=== PATIENT | female | born 1960 | race Caucasian/White ===

== ENCOUNTER 2020-04-16 17:10 | Inpatient (IN) | payer MEDICAID ==
[~2020-04-16] VITALS: Ht 154.9 cm; Wt 117.5 kg
[~2020-04-16 17:10] MED LIST: ASPI-986 PO; ATOR40TA70 PO; CLOP75TA33 PO; LEVO25TA7 PO; METO-539 PO; PANT40TA4 PO
[2020-04-16 23:24] LABS: BASOPHILS % 0.6 % (0.0-2.0); EOSINOPHILS % 0.1 % (0.0-5.0); HEMATOCRIT. 40.4 % (36.0-48.0); HEMOGLOBIN. 13.6 g/dL (12.0-16.0); LYMPHOCYTES % 26.6 % (20.0-50.0); MEAN CORPUSCULAR HEMOGLOBIN 31.8 pg (28.0-32.0); MEAN CORPUSCULAR VOLUME 94.7 fL (81.0-99.0); MEAN PLATELET VOLUME 8.2 fl (7.4-10.4); MONOCYTES % 5.5 % (2.0-8.0); NEUTROPHILS % 67.2 % (40.0-76.0); PLATELET 295 x1000/uL (130-400); RED BLOOD CELL COUNT 4.26 mill/uL (4.2-5.4); RED CELL DISTRIBUTION WIDTH 14.8 % (11.6-14.6)
[2020-04-16 23:26] LABS: CHLORIDE 105 mEq/L (98-107)
[2020-04-16] MEDS ORDERED: ASPIRIN 325MG EC TABLET PO ONE (23:30)
[2020-04-17] MEDS ORDERED: IOHEXOL-350 100 ML BOTTLE ONE (02:06)
[2020-04-17 06:12] VITALS: BP 135/66
[2020-04-17] MEDS ORDERED: CLOP75TA4 MT (06:57)
[2020-04-17] MEDS ORDERED: LEVO50TA8 PO (06:58)
[2020-04-17] MEDS ORDERED: ASPI-1158 PO (06:59)
[2020-04-17] MEDS ORDERED: CARISOPRODOL 350 MG PO SCH (07:00)
[2020-04-17] MEDS ORDERED: CARI250T PO (07:00)
[2020-04-17] MEDS ORDERED: CARISOPRODOL 350 MG TABLET PO PRN ×2 (07:15)
[2020-04-17] MEDS: MORPHINE SULFATE 2 MG/ML CPJ (NOT FOR IM USE) IV PRN ×5 (07:34→20:54)
[2020-04-17 07:42] VITALS: BP 145/81
[2020-04-17] MEDS: CLOPIDOGREL 75MG TABLET PO SCH (08:59)
[2020-04-17] MEDS ORDERED: ALPRAZOLAM 0.25 MG TABLET PO SCH (09:00)
[2020-04-17] MEDS ORDERED: ENOXAPARIN 40MG/0.4ML SYR SUBCUT SCH (09:00)
[2020-04-17] MEDS: FAMOTIDINE 20MG TABLET PO SCH ×2 (09:01→21:25)
[2020-04-17] MEDS: ASPIRIN 81MG EC TABLET PO SCH (09:02)
[2020-04-17] MEDS: ISOSORBIDE MONONITRATE 60MG TABLET SR 24HR PO SCH (09:03)
[2020-04-17] MEDS: METOPROLOL TARTRATE 50MG TABLET PO SCH ×2 (09:04→21:26)
[2020-04-17 09:24] LABS: BASOPHILS % 0.4 % (0.0-2.0); EOSINOPHILS % 0.4 % (0.0-5.0); HEMATOCRIT. 39.2 % (36.0-48.0); LYMPHOCYTES % 28.3 % (20.0-50.0); MEAN CORPUSCULAR HEMOGLOBIN 31.3 pg (28.0-32.0); MEAN CORPUSCULAR VOLUME 94.4 fL (81.0-99.0); MEAN PLATELET VOLUME 8.6 fl (7.4-10.4); MONOCYTES % 4.4 % (2.0-8.0); NEUTROPHILS % 66.5 % (40.0-76.0); PLATELET 287 x1000/uL (130-400); RED BLOOD CELL COUNT 4.15 mill/uL (4.2-5.4); RED CELL DISTRIBUTION WIDTH 14.9 % (11.6-14.6)
[2020-04-17 09:32] LABS: CHLORIDE 105 mEq/L (98-107)
[2020-04-17 09:39] LABS: LDL CHOLESTEROL 89 mg/dL (5-100)
[2020-04-17 09:41] LABS: HDL CHOLESTEROL 73 mg/dL (40-59)
[2020-04-17] MEDS: ENOXAPARIN 40MG/0.4ML SYR SUBCUT SCH ×2 (10:26→21:00)
[2020-04-17] MEDS ORDERED: POTASSIUM CHLORIDE 20MEQ TABLET SR PO NR (11:00)
[2020-04-17 11:20] VITALS: BP 117/53
[2020-04-17] MEDS: DIPHENHYDRAMINE 25MG CAPSULE PO PRN (12:43)
[2020-04-17] MEDS: ALPRAZOLAM 0.25 MG TABLET PO SCH ×2 (14:37→22:05)
[2020-04-17 16:01] VITALS: BP 114/65
[2020-04-17] MEDS: IPRATROPIUM/ALBUTEROL 0.5-3(2.5)MG/3ML NEB HHN SCH ×2 (17:47→21:18)
[2020-04-17 20:00] VITALS: BP 114/65
[2020-04-17] MEDS: ATORVASTATIN CALCIUM 40MG TABLET PO SCH (21:25)
[2020-04-17] MEDS: DIPHENHYDRAMINE 50MG/ML VIAL IV PRN (21:27)
[2020-04-17] MEDS ORDERED: ENOXAPARIN 40MG/0.4ML SYR SUBCUT NR (22:39)
[2020-04-18] VITALS (10 sets, daily range): BP systolic 113–159; BP diastolic 61–95
[2020-04-18] MEDS: IPRATROPIUM/ALBUTEROL 0.5-3(2.5)MG/3ML NEB HHN SCH ×6 (00:36→20:17)
[2020-04-18] MEDS: MORPHINE SULFATE 2 MG/ML CPJ (NOT FOR IM USE) IV PRN ×6 (01:58→21:02)
[2020-04-18] MEDS: DIPHENHYDRAMINE 50MG/ML VIAL IV PRN ×4 (03:38→22:52)
[2020-04-18 06:29] LABS: PROTHROMBIN TIME 10.9 sec (9.6-11.0)
[2020-04-18 06:34] LABS: BASOPHILS % 0.6 % (0.0-2.0); EOSINOPHILS % 1.1 % (0.0-5.0); HEMATOCRIT. 37.6 % (36.0-48.0); HEMOGLOBIN. 12.5 g/dL (12.0-16.0); LYMPHOCYTES % 43.5 % (20.0-50.0); MEAN CORPUSCULAR HEMOGLOBIN 31.9 pg (28.0-32.0); MEAN CORPUSCULAR VOLUME 95.7 fL (81.0-99.0); MEAN PLATELET VOLUME 8.6 fl (7.4-10.4); MONOCYTES % 5.6 % (2.0-8.0); NEUTROPHILS % 49.2 % (40.0-76.0); PLATELET 255 x1000/uL (130-400); RED BLOOD CELL COUNT 3.93 mill/uL (4.2-5.4)
[2020-04-18 06:37] LABS: CHLORIDE 106 mEq/L (98-107)
[2020-04-18] MEDS: ALPRAZOLAM 0.25 MG TABLET PO SCH ×3 (06:39→21:55)
[2020-04-18] MEDS: LEVOTHYROXINE SODIUM 50MCG TABLET PO SCH (07:13)
[2020-04-18] MEDS: ISOSORBIDE MONONITRATE 60MG TABLET SR 24HR PO SCH (08:54)
[2020-04-18] MEDS: ASPIRIN 81MG EC TABLET PO SCH ×2 (08:54→10:10)
[2020-04-18] MEDS: METOPROLOL TARTRATE 50MG TABLET PO SCH ×2 (08:55→21:00)
[2020-04-18] MEDS: CLOPIDOGREL 75MG TABLET PO SCH ×2 (08:55→10:09)
[2020-04-18] MEDS: FAMOTIDINE 20MG TABLET PO SCH ×2 (08:55→10:09)
[2020-04-18] MEDS: ENOXAPARIN 40MG/0.4ML SYR SUBCUT SCH (08:56)
[2020-04-18] MEDS ORDERED: NITROGLYCERIN 50MCG/ML 10ML VIAL (CATH LAB) IV ONE ×2 (10:00→11:00)
[2020-04-18] MEDS ORDERED: HEPARIN SODIUM 1,000 UNIT/1ML VIAL IV ONE ×2 (10:00→11:00)
[2020-04-18] MEDS ORDERED: NICARDIPINE 100MCG/ML 10ML VIAL (CATH LAB) IV ONE ×2 (10:00→11:00)
[2020-04-18] MEDS ORDERED: MIDAZOLAM HCL 5 MG/5 ML VIAL ONE (10:11)
[2020-04-18] MEDS ORDERED: LIDOCAINE HCL 1% 20ML VIAL (Pyxis) INJ ONE (10:12)
[2020-04-18] MEDS ORDERED: FENTANYL CITRATE/PF 50MCG/ML 5ML VIAL ONE (10:12)
[2020-04-18] MEDS ORDERED: IODIXANOL 320MG/ML 100 ML BOTTLE IV ONE (10:13)
[2020-04-18] MEDS ORDERED: ATROPINE SULFATE 1MG/10ML SYR IV PRN (11:30)
[2020-04-18] MEDS ORDERED: ACETAMINOPHEN 325MG TABLET PO PRN (12:00)
[2020-04-18] MEDS: DIPHENHYDRAMINE 25MG CAPSULE PO PRN (13:05)
[2020-04-18] MEDS: ATORVASTATIN CALCIUM 40MG TABLET PO SCH (21:00)
[2020-04-19] VITALS (9 sets, daily range): BP systolic 101–145; BP diastolic 52–85
[2020-04-19] MEDS: IPRATROPIUM/ALBUTEROL 0.5-3(2.5)MG/3ML NEB HHN SCH ×5 (00:46→16:46)
[2020-04-19] MEDS: MORPHINE SULFATE 2 MG/ML CPJ (NOT FOR IM USE) IV PRN ×3 (01:06→09:24)
[2020-04-19 03:30] LABS: *AMPHETAMINES SCREEN URINE NEGATIVE (NEGATIVE); *BARBITURATES SCREEN URINE NEGATIVE (NEGATIVE); *BENZODIAZEPINES SCREEN URINE PRESUMTIVE POSITIVE (NEGATIVE)
[2020-04-19 03:31] LABS: *COCAINE SCREEN URINE NEGATIVE (NEGATIVE); CANNABINOID URINE SCREEN NEGATIVE (NEGATIVE); METHADONE URINE SCREEN NEGATIVE (NEGATIVE); OPIATES URINE SCREEN PRESUMTIVE POSITIVE (NEGATIVE); PHENCYCLIDINE URINE SCREEN NEGATIVE (NEGATIVE)
[2020-04-19] MEDS: DIPHENHYDRAMINE 50MG/ML VIAL IV PRN ×2 (05:03→11:10)
[2020-04-19] MEDS: LEVOTHYROXINE SODIUM 50MCG TABLET PO SCH (06:10)
[2020-04-19] MEDS: ALPRAZOLAM 0.25 MG TABLET PO SCH ×2 (06:10→13:25)
[2020-04-19 06:13] LABS: BASOPHILS % 0.7 % (0.0-2.0); EOSINOPHILS % 1.3 % (0.0-5.0); HEMATOCRIT. 38.8 % (36.0-48.0); HEMOGLOBIN. 12.9 g/dL (12.0-16.0); LYMPHOCYTES % 37.7 % (20.0-50.0); MEAN CORPUSCULAR HEMOGLOBIN 31.7 pg (28.0-32.0); MEAN CORPUSCULAR VOLUME 95.3 fL (81.0-99.0); MEAN PLATELET VOLUME 8.9 fl (7.4-10.4); MONOCYTES % 4.6 % (2.0-8.0); NEUTROPHILS % 55.7 % (40.0-76.0); PLATELET 254 x1000/uL (130-400); RED BLOOD CELL COUNT 4.08 mill/uL (4.2-5.4); RED CELL DISTRIBUTION WIDTH 14.8 % (11.6-14.6)
[2020-04-19 06:27] LABS: CHLORIDE 103 mEq/L (98-107)
[2020-04-19] MEDS: METOPROLOL TARTRATE 50MG TABLET PO SCH (09:16)
[2020-04-19] MEDS: ISOSORBIDE MONONITRATE 60MG TABLET SR 24HR PO SCH (09:16)
[2020-04-19] MEDS: FAMOTIDINE 20MG TABLET PO SCH (09:16)
[2020-04-19] MEDS ORDERED: LOSARTAN POTASSIUM 25 MG TABLET PO SCH (11:30)
[2020-04-19 12:42] LABS: CLARITY URINE CLEAR (CLEAR); COLOR URINE YELLOW (YELLOW); KETONES URINE NEGATIVE (NEGATIVE); LEUKOCYTE ESTERASE URINE 1+ (NEGATIVE); NITRITE URINE NEGATIVE (NEGATIVE); OCCULT BLOOD URINE NEGATIVE (NEGATIVE); PROTEIN URINE NEGATIVE (NEGATIVE); SPECIFIC GRAVITY URINE 1.015 (1.005-1.030); UROBILINOGEN URINE 0.2 E.U./dL (0.2-1.0)
[2020-04-19] MEDS ORDERED: TRAM50TA MT (14:18)
== END 2020-04-19 17:50 | disposition home or self-care (01) | DRG 192 ==
LOC: ER 17:10 → 8WST 04-17 00:59 → EDBEDREQDT 04-17 01:04 → EDBEDREQ 04-17 01:04 → EDBEDREQTM 04-17 01:04 → ENRESERV 04-17 01:52 → 3WST 04-18 11:48
PROVIDERS: ADMIT Internal Medicine; ATTEND Internal Medicine
PROC: 4A023N7 Measurement of Cardiac Sampling and Pressure, Left Heart, Percutaneous Approach (ICD-10-PCS; principal; 2020-04-18)
PROC: B2111ZZ Fluoroscopy of Multiple Coronary Arteries using Low Osmolar Contrast (ICD-10-PCS; 2020-04-18)
DX: T82.855A Stenosis of coronary artery stent, initial encounter (principal); I25.10 Atherosclerotic heart disease of native coronary artery without angina pectoris; E03.9 Hypothyroidism, unspecified; E66.01 Morbid (severe) obesity due to excess calories; E78.5 Hyperlipidemia, unspecified; I10 Essential (primary) hypertension; E78.00 Pure hypercholesterolemia, unspecified; J90 Pleural effusion, not elsewhere classified; R74.01 Elevation of levels of liver transaminase levels; F17.210 Nicotine dependence, cigarettes, uncomplicated; Z20.828 Contact with and (suspected) exposure to other viral communicable diseases; Y83.8 Other surgical procedures as the cause of abnormal reaction of the patient, or of later complication, without mention of misadventure at the time of the procedure; I25.2 Old myocardial infarction; Z68.42 Body mass index [BMI] 45.0-49.9, adult; Z86.73 Personal history of transient ischemic attack (TIA), and cerebral infarction without residual deficits; Z86.718 Personal history of other venous thrombosis and embolism; Z86.74 Personal history of sudden cardiac arrest; Z90.710 Acquired absence of both cervix and uterus; Z79.899 Other long term (current) drug therapy; Z79.82 Long term (current) use of aspirin; Z71.3 Dietary counseling and surveillance; Z88.8 Allergy status to other drugs, medicaments and biological substances; Y92.89 Other specified places as the place of occurrence of the external cause
CPT/HCPCS: 36415; 71045; 71275; 80048; 80053; 80061; 80305; 81003; 83036; 83735; 83880; 84484; 85025; 85379; 93005; 93306; 93458; 93970; 99285; C1769; C1887; C1893; J1200; J1644; J1650; J2250; J2270; J3010; J3490; Q0163; Q9967; U0003

== ENCOUNTER 2020-07-28 12:18 | Inpatient (IN) | payer MEDICAID ==
[~2020-07-28] VITALS: Ht 154.9 cm; Wt 102.1 kg
[~2020-07-28 12:18] MED LIST changes: +ASPI-1406 PO; -ASPI-986 PO; -ATOR40TA70 PO; +CARI250T PO; +CLOP-31 MT; -CLOP75TA33 PO; -LEVO25TA7 PO; +LEVO50TA8 PO; -PANT40TA4 PO; +TRAM50TA MT
[2020-07-28] MEDS ORDERED: NITROGLYCERIN 0.4MG TABLET SL SL PRN (13:00)
[2020-07-28] MEDS ORDERED: MORPHINE SULFATE 4 MG/ML CPJ (NOT FOR IM USE) IV ONE ×2 (13:00→15:45)
[2020-07-28 13:49] LABS: BASOPHILS % 0.6 % (0.0-2.0); EOSINOPHILS % 1.6 % (0.0-5.0); HEMATOCRIT. 39.7 % (36.0-48.0); HEMOGLOBIN. 12.9 g/dL (12.0-16.0); LYMPHOCYTES % 35.7 % (20.0-50.0); MEAN CORPUSCULAR HEMOGLOBIN 30.5 pg (28.0-32.0); MEAN CORPUSCULAR VOLUME 93.9 fL (81.0-99.0); MEAN PLATELET VOLUME 8.7 fl (7.4-10.4); MONOCYTES % 5.9 % (2.0-8.0); NEUTROPHILS % 56.2 % (40.0-76.0); PLATELET 270 x1000/uL (130-400); RED BLOOD CELL COUNT 4.23 mill/uL (4.2-5.4); RED CELL DISTRIBUTION WIDTH 14.1 % (11.6-14.6)
[2020-07-28 13:54] LABS: CHLORIDE 105 mEq/L (98-107)
[2020-07-28 15:00] LABS: *AMPHETAMINES SCREEN URINE NEGATIVE (NEGATIVE); *BARBITURATES SCREEN URINE NEGATIVE (NEGATIVE); *BENZODIAZEPINES SCREEN URINE NEGATIVE (NEGATIVE); *COCAINE SCREEN URINE NEGATIVE (NEGATIVE); METHADONE URINE SCREEN NEGATIVE (NEGATIVE); OPIATES URINE SCREEN PRESUMTIVE POSITIVE (NEGATIVE); PHENCYCLIDINE URINE SCREEN NEGATIVE (NEGATIVE)
[2020-07-28 15:01] LABS: CANNABINOID URINE SCREEN NEGATIVE (NEGATIVE)
[2020-07-28] MEDS ORDERED: OXYCODONE HCL/ACETAMINOPHEN 5/325MG TABLET PO ONE (20:00)
[2020-07-28] MEDS ORDERED: ZOLPIDEM TARTRATE 5MG TABLET PO PRN (20:15)
[2020-07-28] MEDS ORDERED: ONDANSETRON HCL 4MG/2ML INJ IV PRN (20:15)
[2020-07-28] MEDS ORDERED: ACETAMINOPHEN 325MG TABLET PO PRN ×2 (20:15)
[2020-07-28] MEDS ORDERED: ALPRAZOLAM 0.25 MG TABLET PO PRN (20:15)
[2020-07-28] MEDS ORDERED: CLONIDINE 0.1MG TABLET PO PRN (20:15)
[2020-07-28] MEDS ORDERED: MAGNESIUM/ALUMINUM HYDROXIDE/SIMETHICONE 30ML UDC PO PRN (20:15)
[2020-07-28] MEDS ORDERED: CARISOPRODOL 350 MG TABLET PO PRN (20:15)
[2020-07-28] MEDS ORDERED: DIPHENHYDRAMINE 50MG/ML VIAL IV PRN (20:15)
[2020-07-28] MEDS ORDERED: GUAIFENESIN 200MG/10ML SUGAR FREE UDC PO PRN (20:15)
[2020-07-28] MEDS ORDERED: IPRATROPIUM/ALBUTEROL 0.5-3(2.5)MG/3ML NEB HHN PRN (20:15)
[2020-07-28] MEDS ORDERED: ATORVASTATIN CALCIUM 40MG TABLET PO SCH (21:00)
[2020-07-28] MEDS: ENOXAPARIN 30MG/0.3ML SYR SUBCUT SCH (21:45)
[2020-07-28] MEDS: SODIUM CHLORIDE 0.9% INJ 3ML FLUSH IVF SCH (21:56)
[2020-07-28 22:30] VITALS: BP 129/61
[2020-07-28] MEDS: OXYCODONE HCL/ACETAMINOPHEN 5/325MG TABLET PO PRN (23:47)
[2020-07-29] VITALS: BP 103/67
[2020-07-29 04:00] VITALS: BP 115/67
[2020-07-29] MEDS: SODIUM CHLORIDE 0.9% INJ 3ML FLUSH IVF SCH (06:30)
[2020-07-29] MEDS ORDERED: LEVOTHYROXINE SODIUM 25MCG TABLET PO SCH (07:20)
[2020-07-29 08:00] VITALS: BP 158/70
[2020-07-29 08:47] VITALS: BP 158/70
[2020-07-29] MEDS: OXYCODONE HCL/ACETAMINOPHEN 5/325MG TABLET PO PRN (08:47)
[2020-07-29] MEDS: ENOXAPARIN 30MG/0.3ML SYR SUBCUT SCH (08:48)
[2020-07-29] MEDS ORDERED: ISOSORBIDE MONONITRATE 60MG TABLET SR 24HR PO SCH (09:00)
[2020-07-29] MEDS ORDERED: ASPIRIN 81MG EC TABLET PO SCH (09:00)
[2020-07-29] MEDS ORDERED: CLOPIDOGREL 75MG TABLET PO SCH (09:00)
[2020-07-29] MEDS ORDERED: LOSARTAN POTASSIUM 25 MG TABLET PO SCH (09:00)
== END 2020-07-29 13:10 | disposition left against medical advice (07) | DRG 203 ==
LOC: ER 12:38 → 6WST 16:51 → EDBEDREQ 16:53 → EDBEDREQTM 16:53 → ENRESERV 20:37
PROVIDERS: ADMIT Internal Medicine; ATTEND Internal Medicine
DX: M94.0 Chondrocostal junction syndrome [Tietze] (principal); E03.9 Hypothyroidism, unspecified; E11.9 Type 2 diabetes mellitus without complications; E66.9 Obesity, unspecified; E78.00 Pure hypercholesterolemia, unspecified; E78.5 Hyperlipidemia, unspecified; G89.4 Chronic pain syndrome; I10 Essential (primary) hypertension; I25.10 Atherosclerotic heart disease of native coronary artery without angina pectoris; J44.9 Chronic obstructive pulmonary disease, unspecified; R74.01 Elevation of levels of liver transaminase levels; M19.90 Unspecified osteoarthritis, unspecified site; Z96.651 Presence of right artificial knee joint; Z53.29 Procedure and treatment not carried out because of patient's decision for other reasons; Z68.41 Body mass index [BMI] 40.0-44.9, adult; Z88.6 Allergy status to analgesic agent; Z79.899 Other long term (current) drug therapy; Z79.82 Long term (current) use of aspirin; I25.2 Old myocardial infarction; Z90.710 Acquired absence of both cervix and uterus; Z95.1 Presence of aortocoronary bypass graft; Z95.5 Presence of coronary angioplasty implant and graft; Z87.891 Personal history of nicotine dependence; Z86.718 Personal history of other venous thrombosis and embolism; Z86.73 Personal history of transient ischemic attack (TIA), and cerebral infarction without residual deficits
CPT/HCPCS: 36415; 71045; 80053; 80305; 83880; 84484; 85025; 93005; 99285; J1650; J2270

== ENCOUNTER 2021-04-17 21:05 | Inpatient (IN) | payer MEDICAID, MEDICARE ==
[~2021-04-17] VITALS: Ht 154.9 cm; Wt 109.4 kg
[2021-04-17 22:51] LABS: HEMATOCRIT. 38.3 % (36.0-48.0); HEMOGLOBIN. 12.8 g/dL (12.0-16.0); MEAN CORPUSCULAR HEMOGLOBIN 30.7 pg (28.0-32.0); MEAN CORPUSCULAR VOLUME 91.6 fL (81.0-99.0); MEAN PLATELET VOLUME 7.9 fl (7.4-10.4); PLATELET 281 x1000/uL (130-400); RED BLOOD CELL COUNT 4.18 mill/uL (4.2-5.4); RED CELL DISTRIBUTION WIDTH 15.9 % (11.6-14.6)
[2021-04-17] MEDS ORDERED: MORPHINE SULFATE 4 MG/ML CPJ (NOT FOR IM USE) IV STA (22:53)
[2021-04-17] MEDS ORDERED: ONDANSETRON HCL 4MG/2ML INJ IV STA (22:53)
[2021-04-17 22:57] LABS: CHLORIDE 112 mEq/L (98-107)
[2021-04-17] MEDS ORDERED: NITROGLYCERIN OINT 1GM/INCH UDPKT TD ONE (23:00)
[2021-04-17 23:01] LABS: ETHANOL BLOOD < 10 mg/dL
[2021-04-17 23:12] LABS: PLATELET ESTIMATE NORMAL
[2021-04-18] MEDS ORDERED: MORPHINE SULFATE 2 MG/ML CPJ (NOT FOR IM USE) IV PRN (05:15)
[2021-04-18 05:34] LABS: *AMPHETAMINES SCREEN URINE NEGATIVE (NEGATIVE); *BARBITURATES SCREEN URINE NEGATIVE (NEGATIVE); *BENZODIAZEPINES SCREEN URINE NEGATIVE (NEGATIVE); *COCAINE SCREEN URINE NEGATIVE (NEGATIVE); METHADONE URINE SCREEN NEGATIVE (NEGATIVE); OPIATES URINE SCREEN PRESUMTIVE POSITIVE (NEGATIVE); PHENCYCLIDINE URINE SCREEN NEGATIVE (NEGATIVE)
[2021-04-18 05:35] LABS: CANNABINOID URINE SCREEN NEGATIVE (NEGATIVE)
[2021-04-18] MEDS ORDERED: HYDROCODONE/ACETAMINOPHEN 5/325MG TABLET PO PRN (08:30)
[2021-04-18] MEDS ORDERED: ACETAMINOPHEN 325MG TABLET PO PRN (08:30)
[2021-04-18] MEDS ORDERED: ONDANSETRON HCL 4MG/2ML INJ IV PRN (08:30)
[2021-04-18 09:17] LABS: EOSINOPHILS % 1.7 % (0.0-5.0); HEMATOCRIT. 37.7 % (36.0-48.0); HEMOGLOBIN. 12.3 g/dL (12.0-16.0); LYMPHOCYTES % 34.1 % (20.0-50.0); MEAN CORPUSCULAR HEMOGLOBIN 30.3 pg (28.0-32.0); MEAN PLATELET VOLUME 8.1 fl (7.4-10.4); MONOCYTES % 5.7 % (2.0-8.0); NEUTROPHILS % 57.5 % (40.0-76.0); PLATELET 251 x1000/uL (130-400); RED BLOOD CELL COUNT 4.06 mill/uL (4.2-5.4); RED CELL DISTRIBUTION WIDTH 15.7 % (11.6-14.6)
[2021-04-18 09:25] LABS: CHLORIDE 111 mEq/L (98-107)
[2021-04-18 09:38] VITALS: BP 101/52
[2021-04-18] MEDS ORDERED: METOPROLOL TARTRATE 50MG TABLET PO SCH (10:15)
[2021-04-18] MEDS ORDERED: ISOSORBIDE MONONITRATE 30MG TABLET SR 24HR PO SCH (10:15)
[2021-04-18] MEDS ORDERED: CLOPIDOGREL 75MG TABLET PO SCH (10:15)
[2021-04-18] MEDS ORDERED: ASPIRIN 81MG TABLET PO SCH (10:15)
[2021-04-18] MEDS ORDERED: MORPHINE SULFATE 2 MG/ML CPJ (NOT FOR IM USE) IV NR (11:48)
[2021-04-18 12:00] VITALS: BP 142/80
[2021-04-18] MEDS ORDERED: NITROGLYCERIN OINT 1GM/INCH UDPKT TD SCH (14:00)
[2021-04-18] MEDS ORDERED: ISOS30TA91 PO (14:47)
[2021-04-18 16:00] VITALS: BP 98/66
[2021-04-18 16:10] VITALS: BP 101/58
[2021-04-18] MEDS ORDERED: ATORVASTATIN CALCIUM 40MG TABLET PO SCH (21:00)
[2021-04-19] MEDS ORDERED: ASPIRIN 81MG TABLET PO SCH (09:00)
== END 2021-04-18 16:22 | disposition home or self-care (01) | DRG 203 ==
LOC: ER 21:05 → 8WST 23:21 → EDBEDREQ 23:24 → EDBEDREQTM 23:24 → ENRESERV 04-18 07:56
PROVIDERS: ADMIT Internal Medicine; ATTEND Internal Medicine
DX: M94.0 Chondrocostal junction syndrome [Tietze] (principal); E44.1 Mild protein-calorie malnutrition; E87.8 Other disorders of electrolyte and fluid balance, not elsewhere classified; I50.9 Heart failure, unspecified; I11.0 Hypertensive heart disease with heart failure; I25.10 Atherosclerotic heart disease of native coronary artery without angina pectoris; E66.9 Obesity, unspecified; E78.00 Pure hypercholesterolemia, unspecified; J98.11 Atelectasis; E03.9 Hypothyroidism, unspecified; E78.5 Hyperlipidemia, unspecified; J44.9 Chronic obstructive pulmonary disease, unspecified; Z79.82 Long term (current) use of aspirin; Z82.49 Family history of ischemic heart disease and other diseases of the circulatory system; Z88.6 Allergy status to analgesic agent; Z79.890 Hormone replacement therapy; Z79.899 Other long term (current) drug therapy; Z90.49 Acquired absence of other specified parts of digestive tract; Z86.73 Personal history of transient ischemic attack (TIA), and cerebral infarction without residual deficits; Z68.42 Body mass index [BMI] 45.0-49.9, adult; Z79.02 Long term (current) use of antithrombotics/antiplatelets; Z86.718 Personal history of other venous thrombosis and embolism; Z95.5 Presence of coronary angioplasty implant and graft; Z87.891 Personal history of nicotine dependence
CPT/HCPCS: 36415; 71045; 80048; 80053; 80305; 80320; 83880; 84484; 85025; 93005; 93306; 93970; 99285; J2270; J2405; G0480

== ENCOUNTER 2023-01-21 21:27 | Emergency (ER) | payer OTHER, MEDICARE ==
[~2023-01-21] VITALS: Ht 154.9 cm; Wt 115.0 kg
[~2023-01-21 21:27] MED LIST changes: +ISOS30TA91 PO
[2023-01-21 21:51] VITALS: BP 150/70; PULSE 82; RESP 19; TEMP 97.7; O2SAT 96
[2023-01-21 22:53] LABS: BASOPHILS % 0.8 % (0.0-2.0); EOSINOPHILS % 2.1 % (0.0-5.0); HEMOGLOBIN. 10.7 g/dL (12.0-16.0); LYMPHOCYTES % 36.7 % (20.0-50.0); MEAN CORPUSCULAR HEMOGLOBIN 29.1 pg (28.0-32.0); MEAN CORPUSCULAR HGB CONC 32.3 g/dL (31.0-37.0); MEAN CORPUSCULAR VOLUME 89.9 fL (81.0-99.0); MEAN PLATELET VOLUME 7.9 fl (7.4-10.4); MONOCYTES % 5.7 % (2.0-8.0); NEUTROPHILS % 54.7 % (40.0-76.0); PLATELET 355 x1000/uL (130-400); RED BLOOD CELL COUNT 3.68 mill/uL (4.2-5.4); RED CELL DISTRIBUTION WIDTH 15.9 % (11.6-14.6); WHITE BLOOD COUNT 7.6 x1000/uL (4.5-11.0)
[2023-01-21 23:01] LABS: CHLORIDE 112 mEq/L (98-107); HCG SCREEN NEGATIVE; INDEX HEMOLYSI 1 (1-3); INDEX ICTERIC 1 (1-4); INDEX LIPEMIC 1 (1-3); POTASSIUM 3.7 mEq/L (3.5-5.1); SODIUM 140 mEq/L (136-145)
[2023-01-21 23:11] LABS: ALANINE AMINOTRANSFERASE 42 IU/L (13-61); ASPARTATE AMINOTRANSFERASE 41 IU/L (15-37); BILIRUBIN TOTAL 0.2 mg/dL (0.1-1.0); CALCIUM 7.8 mg/dL (8.5-10.1); CARBON DIOXIDE 23 mEq/L (21-32); CREATININE 0.7 mg/dL (0.6-1.3); GLUCOSE 170 mg/dL (70-105); NT PRO B-TYPE NATRIURETIC PEP 128 pg/mL (5-125); PROTEIN TOTAL 6.8 g/dL (6.0-8.3); TROPONIN I HIGH SENSITIVITY 6 ng/L (<54); UREA NITROGEN BLOOD 15 mg/dL (7-21)
== END 2023-01-22 01:52 | disposition left against medical advice (07) ==
LOC: ER 21:27
DX: Z53.21 Procedure and treatment not carried out due to patient leaving prior to being seen by health care provider (principal)
CPT/HCPCS: 36415; 71046; 80053; 83880; 84484; 84703; 85025; 93005; 99281; 99285

== ENCOUNTER 2023-06-28 19:34 | Emergency (ER) | payer BC ==
[~2023-06-28] VITALS: Ht 154.9 cm; Wt 110.0 kg
[~2023-06-28 19:34] MED LIST changes: +LEVO125T8 PO; -LEVO50TA8 PO; +LIP40 PO; +LOSA50TA41 PO; -METO-539 PO; +METO100T16 PO; +NITR0.4T49 SL; +PANT20TA17 MT
[2023-06-28 19:50] VITALS: BP 173/96; PULSE 94; RESP 18; TEMP 98; O2SAT 94
== END 2023-06-28 22:19 | disposition left against medical advice (07) ==
LOC: ER 19:34
DX: R07.9 Chest pain, unspecified (principal); Z53.21 Procedure and treatment not carried out due to patient leaving prior to being seen by health care provider
CPT/HCPCS: 99281

== ENCOUNTER 2023-10-05 19:16 | Emergency (ER) | payer BC, MEDICAID ==
[~2023-10-05] VITALS: Ht 154.9 cm; Wt 150.0 kg
[~2023-10-05 19:16] MED LIST changes: +AMLO2.5T45 PO
[2023-10-05 19:59] LABS: BASOPHILS % 0.9 % (0.0-2.0); EOSINOPHILS % 1.8 % (0.0-5.0); HEMATOCRIT. 38.6 % (36.0-48.0); HEMOGLOBIN. 12.8 g/dL (12.0-16.0); LYMPHOCYTES % 37.1 % (20.0-50.0); MEAN CORPUSCULAR HEMOGLOBIN 29.3 pg (28.0-32.0); MEAN CORPUSCULAR HGB CONC 33.2 g/dL (31.0-37.0); MEAN CORPUSCULAR VOLUME 88.1 fL (81.0-99.0); MEAN PLATELET VOLUME 8.4 fl (7.4-10.4); MONOCYTES % 4.7 % (2.0-8.0); NEUTROPHILS % 55.5 % (40.0-76.0); PLATELET 237 x1000/uL (130-400); RED BLOOD CELL COUNT 4.39 mill/uL (4.2-5.4); RED CELL DISTRIBUTION WIDTH 17.2 % (11.6-14.6); WHITE BLOOD COUNT 6.7 x1000/uL (4.5-11.0)
[2023-10-05 20:05] LABS: CHLORIDE 103 mEq/L (98-107); POTASSIUM 3.4 mEq/L (3.5-5.1); SODIUM 139 mEq/L (136-145)
[2023-10-05 20:06] LABS: CALCIUM 9.5 mg/dL (8.7-10.4); CARBON DIOXIDE 28 mEq/L (21-32)
[2023-10-05 20:11] LABS: CREATININE 0.5 mg/dL (0.6-1.0); GLUCOSE 169 mg/dL (70-105); UREA NITROGEN BLOOD 9 mg/dL (9-23)
[2023-10-05 20:21] LABS: TROPONIN I HIGH SENSITIVITY 5 ng/L (3.0-34)
[2023-10-05 20:30] VITALS: BP 164/89; PULSE 80; RESP 18; TEMP 98.9; O2SAT 100
== END 2023-10-06 01:35 | disposition left against medical advice (07) ==
LOC: ER 19:16
DX: R07.9 Chest pain, unspecified (principal); Z53.21 Procedure and treatment not carried out due to patient leaving prior to being seen by health care provider
CPT/HCPCS: 36415; 71045; 80048; 83880; 84484; 85025; 93005